=== PATIENT | male | born 1935 | race Caucasian/White ===

== ENCOUNTER 2024-11-27 12:40 | Inpatient (IN) | payer OTHER ==
[~2024-11-27] VITALS: Ht 177.8 cm; Wt 72.6 kg
[2024-11-27] MEDS ORDERED: LOSA100T31 PO (12:55)
[2024-11-27] MEDS ORDERED: AMLO-212 PO (12:55)
[2024-11-27] MEDS ORDERED: ATOR10TA (12:55)
[2024-11-27] MEDS: IV NORMAL SALINE 1000 ML BAG IV STA (13:20)
[2024-11-27 13:25] LABS: PLATELET COUNT (AUTO) 227 K/uL (152-348); RED BLOOD CELL COUNT(AUTO) 5.06 MIL/uL (4.06-5.63); RED CELL DISTRIBUTION WIDTH 14.6 % (12.1-16.2); WHITE BLOOD COUNT (AUTO) 8.3 K/uL (3.6-10.2)
[2024-11-27 13:48] LABS: CREATININE 0.6 mg/dL (0.6-1.3); SODIUM SERUM 147 mmol/L (136-145); UREA NITROGEN, BLOOD 33 mg/dL (7-18)
[2024-11-27 13:53] LABS: ASPARTATE AMINOTRANSFERASE 38 U/L (15-37); TOTAL PROTEIN, SERUM 6.2 g/dL (6.4-8.2)
[2024-11-27] MEDS ORDERED: POTASSIUM CHLORIDE 20 MEQ TAB.PRT.SR PO ONE (14:15)
[2024-11-27] MEDS ORDERED: POTASSIUM CHLORIDE 20 MEQ TAB.PRT.SR ONE (14:20)
[2024-11-27 14:37] LABS: *BILIRUBIN,URIN 1+ (NEGATIVE); *BLOOD, URINE NEGATIVE (NEGATIVE); *KETONES,URINE NEGATIVE (NEGATIVE); *PROTEIN,URINE 2+ (NEGATIVE); *UROBILINOGEN,URINE 1.0 E.U./dl (NORMAL); LEUKOCYTE ESTERASE ,URINE NEGATIVE (NEGATIVE); NITRITE, URINE NEGATIVE (NEGATIVE); UGLUCOSE NEGATIVE (NEGATIVE)
[2024-11-27] MEDS ORDERED: POTASSIUM CHLORIDE 50 ML ONE (14:37)
[2024-11-27] MEDS: POTASSIUM CHLORIDE 50 ML IV SCH (14:43)
[2024-11-27 14:45] LABS: *CLARITY,URINE HAZY (CLEAR); *COLOR,URINE DARK YELLOW (YELLOW)
[2024-11-27] MEDS: IV NORMAL SALINE 1000 ML BAG IV ONE (15:09)
[2024-11-27 15:16] LABS: SQUAMOUS EPITHELIAL CELL,UR FEW /HPF (NONE SEEN)
[2024-11-27] MEDS ORDERED: ONDANSETRON 4 MG/2 ML VIAL IV PRN (16:30)
[2024-11-27] MEDS ORDERED: REMEDY ESSENTIAL ZINC PASTE 113 GM TP PRN (16:30)
[2024-11-27] MEDS ORDERED: ONDANSETRON 4 MG/2 ML VIAL ONE (16:48)
[2024-11-27] MEDS ORDERED: MORPHINE SULFATE 4 MG/1 ML DISP.SYRIN ONE (16:49)
[2024-11-27] MEDS: ONDANSETRON 4 MG/2 ML VIAL IV ONE (16:53)
[2024-11-27] MEDS: MORPHINE SULFATE 4 MG/1 ML DISP.SYRIN IV ONE (16:53)
[2024-11-27 17:01] VITALS: BP 158/83
[2024-11-27 19:41] VITALS: BP 151/80; TEMP 98; O2SAT 96
[2024-11-27] MEDS ORDERED: ATORVASTATIN 10 MG TABLET PO SCH (21:00)
[2024-11-27] MEDS: LACTULOSE 20 G/30 ML LIQUID UDC PO ONE ×2 (21:52→21:54)
[2024-11-27 23:21] VITALS: BP 142/78; TEMP 98; O2SAT 95
[2024-11-27] MEDS: IV NS 1000 ML 1,000 ML IV PRN (23:35)
[2024-11-28 05:31] VITALS: BP 178/95; TEMP 97.9; O2SAT 95
[2024-11-28 07:30] LABS: PLATELET COUNT (AUTO) 230 K/uL (152-348); RED BLOOD CELL COUNT(AUTO) 4.38 MIL/uL (4.06-5.63); RED CELL DISTRIBUTION WIDTH 14.3 % (12.1-16.2); WHITE BLOOD COUNT (AUTO) 8.3 K/uL (3.6-10.2)
[2024-11-28 07:43] LABS: ASPARTATE AMINOTRANSFERASE 33 U/L (15-37); CREATININE 0.7 mg/dL (0.6-1.3); SODIUM SERUM 148 mmol/L (136-145); TOTAL PROTEIN, SERUM 6.2 g/dL (6.4-8.2); UREA NITROGEN, BLOOD 27 mg/dL (7-18)
[2024-11-28 08:07] VITALS: BP 136/76; TEMP 97.8; O2SAT 94
[2024-11-28] MEDS ORDERED: POTASSIUM CHLORIDE 20 MEQ POWDER PACKET GT ONE (08:30)
[2024-11-28] MEDS: AMLODIPINE 5 MG TABLET PO SCH (09:11)
[2024-11-28] MEDS: LOSARTAN POTASSIUM 50 MG TABLET PO SCH (09:12)
[2024-11-28] MEDS: POTASSIUM CHLORIDE 20 MEQ TAB.PRT.SR PO ONE (09:12)
[2024-11-28] MEDS: MIRALAX 17 GM POWD.PACK PO SCH (09:13)
[2024-11-28] MEDS: PANTOPRAZOLE SODIUM 40 MG VIAL IV SCH (09:13)
[2024-11-28] MEDS: POTASSIUM CHLORIDE 50 ML IV SCH (09:17)
[2024-11-28 11:05] VITALS: BP 151/75; TEMP 98; O2SAT 95
[2024-11-28] MEDS: LACTULOSE 20 G/30 ML LIQUID UDC PO ONE (12:39)
[2024-11-28 16:49] VITALS: BP 153/85; TEMP 98.4; O2SAT 96
[2024-11-28 19:00] VITALS: BP 150/81; TEMP 98; O2SAT 96
[2024-11-28] MEDS: IV D5W-0.45% NS +20 KCL 1,000 ML IV PRN (21:57)
[2024-11-29] VITALS: BP 165/85; TEMP 97.7; O2SAT 95
[2024-11-29 04:00] VITALS: BP 150/78; TEMP 97.9; O2SAT 94
[2024-11-29 07:55] VITALS: BP 141/71; TEMP 98; O2SAT 94
[2024-11-29 09:15] LABS: CREATININE 0.6 mg/dL (0.6-1.3); SODIUM SERUM 144 mmol/L (136-145); UREA NITROGEN, BLOOD 18 mg/dL (7-18)
[2024-11-29] MEDS: CARVEDILOL 6.25 MG TABLET PO SCH (09:23)
[2024-11-29 11:24] VITALS: BP 118/73; TEMP 97.6; O2SAT 95
[2024-11-29 15:57] VITALS: BP 151/76; TEMP 98.2; O2SAT 96
[2024-11-29] MEDS: BISACODYL 5 MG TABLET.DR PO ONE (16:33)
[2024-11-29] MEDS: BISACODYL 10 MG SUPP.RECT RC ONE (18:59)
[2024-11-29 19:00] VITALS: BP 155/78; TEMP 97.5; O2SAT 95
[2024-11-29] MEDS: SENNOSIDES 1 TABLET PO SCH (20:26)
[2024-11-30] VITALS: BP 147/69; TEMP 97.9; O2SAT 96
[2024-11-30 04:00] VITALS: BP 154/69; TEMP 97.7; O2SAT 96
[2024-11-30] MEDS: MAGNESIUM HYDROXIDE 30 ML LIQUID UDC PO PRN (04:48)
[2024-11-30] MEDS: ACETAMINOPHEN 325 MG TABLET PO PRN (06:45)
[2024-11-30 07:39] LABS: CREATININE 0.4 mg/dL (0.6-1.3); SODIUM SERUM 139 mmol/L (136-145); UREA NITROGEN, BLOOD 17 mg/dL (7-18)
[2024-11-30] MEDS: POTASSIUM CHLORIDE 20 MEQ POWDER PACKET PO ONE (10:44)
[2024-11-30 10:46] VITALS: BP 145/82; TEMP 97.6; O2SAT 94
[2024-11-30] MEDS: POTASSIUM CHLORIDE 50 ML IV SCH (13:08)
[2024-11-30] MEDS: BISACODYL 10 MG SUPP.RECT RC ONE (13:12)
[2024-11-30 15:59] VITALS: BP 163/88; TEMP 97.5; O2SAT 95
[2024-11-30 19:00] VITALS: BP 171/91; TEMP 97.9; O2SAT 99
[2024-11-30 20:03] VITALS: BP 149/64; TEMP 97.8; O2SAT 98
[2024-11-30] MEDS ORDERED: IV D5W-0.45% NS +20 KCL 1,000 ML IV ONE (20:56)
[2024-11-30] MEDS: SENNOSIDES 1 TABLET PO SCH (22:10)
[2024-12-01 04:00] VITALS: BP 175/67; TEMP 97.7; O2SAT 97
[2024-12-01 06:33] VITALS: BP 175/76; TEMP 97.7; O2SAT 97
[2024-12-01] MEDS: CLONIDINE HCL 0.1 MG TABLET PO ONE (06:46)
[2024-12-01 11:05] LABS: CREATININE 0.6 mg/dL (0.6-1.3); SODIUM SERUM 135 mmol/L (136-145); UREA NITROGEN, BLOOD 22 mg/dL (7-18)
[2024-12-01 11:33] VITALS: BP 139/68; TEMP 98; O2SAT 97
[2024-12-01] MEDS: AMLODIPINE 10 MG TABLET PO SCH (12:44)
[2024-12-01] MEDS: FLEET ENEMA 133 ML BOTTLE RC ONE (13:58)
[2024-12-01 15:44] VITALS: BP 137/71; TEMP 98; O2SAT 95
[2024-12-01] MEDS: MAGNESIUM CITRATE 296 ML BOTTLE PO ONE (17:47)
[2024-12-01 23:02] VITALS: BP 133/74; TEMP 97.8; O2SAT 96
[2024-12-02 05:25] VITALS: BP 144/81; TEMP 97.9; O2SAT 96
[2024-12-02 07:01] LABS: CREATININE 0.8 mg/dL (0.6-1.3); SODIUM SERUM 137 mmol/L (136-145); UREA NITROGEN, BLOOD 33 mg/dL (7-18)
[2024-12-02 11:34] VITALS: BP 136/80; TEMP 97.5; O2SAT 95
[2024-12-02 16:00] VITALS: BP 130/72; TEMP 97.8; O2SAT 95
[2024-12-02 19:49] VITALS: BP 121/66; TEMP 97.4; O2SAT 93
[2024-12-03] MEDS: PANTOPRAZOLE SODIUM 40 MG TABLET.DR PO SCH (06:38)
[2024-12-03 07:18] VITALS: BP 151/86; TEMP 97.5; O2SAT 94
[2024-12-03] MEDS ORDERED: AMLO10TA59 PO (08:30)
[2024-12-03] MEDS ORDERED: CARV6.252 PO (08:30)
[2024-12-03 09:31] VITALS: BP 124/70
[2024-12-03 10:54] VITALS: BP 131/65; O2SAT 95
[2024-12-03 12:00] VITALS: BP 131/65; TEMP 97.3; O2SAT 95
[2024-12-03 16:16] VITALS: BP 124/69; TEMP 97.3; O2SAT 95
[2024-12-03 18:25] VITALS: BP 118/66
== END 2024-12-03 19:10 | DRG 640 ==
LOC: ER 12:40 → TELE3 17:29 → MEDSURG3 11-30 01:49
PROVIDERS: ADMIT Nurse Practitioner Acute Care; ATTEND Nurse Practitioner Acute Care
DX: E86.0 Dehydration (principal); E43 Unspecified severe protein-calorie malnutrition; N17.0 Acute kidney failure with tubular necrosis; G92.8 Other toxic encephalopathy; R64 Cachexia; E87.6 Hypokalemia; E88.09 Other disorders of plasma-protein metabolism, not elsewhere classified; K43.9 Ventral hernia without obstruction or gangrene; K59.00 Constipation, unspecified; R62.7 Adult failure to thrive; E78.5 Hyperlipidemia, unspecified; E87.0 Hyperosmolality and hypernatremia; R00.8 Other abnormalities of heart beat; I49.3 Ventricular premature depolarization; I16.0 Hypertensive urgency; F03.90 Unspecified dementia, unspecified severity, without behavioral disturbance, psychotic disturbance, mood disturbance, and anxiety; I10 Essential (primary) hypertension; E86.1 Hypovolemia; R33.9 Retention of urine, unspecified; R74.01 Elevation of levels of liver transaminase levels; Z68.23 Body mass index [BMI] 23.0-23.9, adult; Z85.51 Personal history of malignant neoplasm of bladder; Z79.899 Other long term (current) drug therapy; Z91.81 History of falling
CPT/HCPCS: 36415; 71045; 74021; 83605; 83735; 84100; 84132; 84484; 85025; 85730; 87040; 87086; 93307; A4606; A4663; C1758; G0378; J0360; J2270; J2405; J2470; J3480; J7040